=== PATIENT | male | born 1965 | race Caucasian/White ===

== ENCOUNTER 2022-04-07 02:49 | Emergency (ER) | payer OTHER ==
[~2022-04-07] VITALS: Ht 177.8 cm; Wt 90.7 kg
[~2022-04-07 02:49] MED LIST: AMOCLA875 PO; FOLBIC RF TABL1 EACH PO; METR250 PO; METRIBP PO; Omeprazole20 M1 PO
[2022-04-07 03:46] LABS: BASOPHILS ABSOLUTE AUTO 0.03 K/mm3 (0.00-0.23); BASOPHILS PERCENT AUTO 0 % (0-2); EOSINOPHILS ABSOLUTE AUTO 0.02 K/mm3 (0.00-0.68); EOSINOPHILS PERCENT AUTO 0 % (0-6); Hematocrit 40.7 % (37.0-53.0); Hemoglobin 13.5 g/dL (13.5-17.5); IMMATURE GRAN ABSOLUTE AUTO 0.04 K/mm3 (0.00-0.10); IMMATURE GRAN PERCENT AUTO 0 % (0-1); LYMPHOCYTES ABSOLUTE AUTO 0.86 K/mm3 (0.84-5.20); LYMPHOCYTES PERCENT AUTO 9 % (21-46); MONOCYTES ABSOLUTE AUTO 0.35 K/mm3 (0.16-1.47); MONOCYTES PERCENT AUTO 4 % (4-13); Mean Corpuscular HGB Conc 33.2 g/dL (31.5-36.5); Mean Corpuscular Volume 87 fL (80-100); Mean Platelet Volume 10.2 fL (9.1-12.4); NEUTROPHILS ABSOLUTE AUTO 8.68 K/mm3 (1.96-9.15); NEUTROPHILS PERCENT AUTO 87 % (41-73); Platelet Count 245 K/mm3 (150-400); RDW Coefficient Variation 14.4 % (11.7-14.2); RDW Standard Deviation 46.2 fL (35.1-46.3); Red Blood Cell Count 4.66 M/mm3 (4.30-5.90); White Blood Cell Count 9.98 K/mm3 (4.00-11.30)
[2022-04-07 04:10] LABS: Albumin, Blood 3.9 g/dL (3.4-5.0); Bilirubin, Total 0.2 mg/dL (0.1-1.0); Bun/Creatinine Ratio 23.4 (12.0-20.0); Creatinine, Blood 0.73 mg/dL (0.60-1.20); Globulin, Blood 3.9 g/dL (2.2-4.0); Potassium, Blood 3.5 mmol/L (3.5-5.5); Total Protein, Blood 7.8 g/dL (6.4-8.2)
[2022-04-07] MEDS ORDERED: CIPRO500 M1 PO (06:47)
[2022-04-07] MEDS ORDERED: METR500 PO (06:47)
[2022-04-07 06:52] LABS: Source, Urine Clean Catch
[2022-04-07 07:01] LABS: Bilirubin, Urine Neg (Neg); Blood, Urine Neg (Neg); Glucose Qualitative, Urine Neg (Neg); Ketones, Urine Neg (Neg); Leukocyte Esterase, Urine Neg (Neg); Nitrite, Urine Neg (Neg); Protein, Urine 1+ (Neg); Urobilinogen, Urine NORM (Normal)
[2022-04-07 07:32] LABS: Appearance, Urine Clear (Clear); Color, Urine Yellow (P-Yellow)
== END 2022-04-07 07:43 | disposition home or self-care (01) ==
LOC: ER 02:49
PROVIDERS: Student in an Organized Health Care Education/Training Program
DX: K57.32 Diverticulitis of large intestine without perforation or abscess without bleeding (principal); Z79.899 Other long term (current) drug therapy
CPT/HCPCS: 74177; 80053; 83690; 85025; 87086; A9270; G0480; J0744; J1170; J2405; J7030; Q9967

== ENCOUNTER → 2022-05-02 | Outpatient (CLI) | payer OTHER ==
[~2022-05-02] MED LIST changes: +CIPRO500 M1 PO; +METR500 PO
[2022-05-02 16:54] LABS: BASOPHILS ABSOLUTE AUTO 0.03 K/mm3 (0.00-0.23); BASOPHILS PERCENT AUTO 0 % (0-2); EOSINOPHILS ABSOLUTE AUTO 0.09 K/mm3 (0.00-0.68); EOSINOPHILS PERCENT AUTO 1 % (0-6); Hematocrit 41.3 % (37.0-53.0); Hemoglobin 13.8 g/dL (13.5-17.5); IMMATURE GRAN ABSOLUTE AUTO 0.03 K/mm3 (0.00-0.10); IMMATURE GRAN PERCENT AUTO 0 % (0-1); LYMPHOCYTES ABSOLUTE AUTO 0.84 K/mm3 (0.84-5.20); LYMPHOCYTES PERCENT AUTO 9 % (21-46); MONOCYTES ABSOLUTE AUTO 0.71 K/mm3 (0.16-1.47); MONOCYTES PERCENT AUTO 8 % (4-13); Mean Corpuscular HGB 29.2 pg (26.0-34.0); Mean Corpuscular HGB Conc 33.4 g/dL (31.5-36.5); Mean Corpuscular Volume 87 fL (80-100); Mean Platelet Volume 10.5 fL (9.1-12.4); NEUTROPHILS ABSOLUTE AUTO 7.34 K/mm3 (1.96-9.15); NEUTROPHILS PERCENT AUTO 81 % (41-73); Platelet Count 242 K/mm3 (150-400); RDW Coefficient Variation 14.7 % (11.7-14.2); RDW Standard Deviation 47.3 fL (35.1-46.3); Red Blood Cell Count 4.73 M/mm3 (4.30-5.90); White Blood Cell Count 9.04 K/mm3 (4.00-11.30)
[2022-05-02 17:02] LABS: Albumin, Blood 4.1 g/dL (3.4-5.0); Albumin/Globulin Ratio 1.1 (0.8-1.8); Bilirubin, Total 5.2 mg/dL (0.1-1.0); Bun/Creatinine Ratio 22.1 (12.0-20.0); Calcium, Blood 9.6 mg/dL (8.5-10.1); Creatinine, Blood 0.86 mg/dL (0.60-1.20); Globulin, Blood 3.9 g/dL (2.2-4.0); Potassium, Blood 3.9 mmol/L (3.5-5.5)
[2022-05-02 19:41] LABS: Prothrombin Time Results 10.5 Sec (9.7-11.5)
[2022-05-04 09:11] LABS: HBSAG SCREEN Negative (Negative); HCV AB <0.1 (0.0-0.9); HEP B CORE AB, TOT Negative (Negative)
== END | disposition home or self-care (01) ==
LOC: LAB 16:33 → LAB SHORT 16:33
PROVIDERS: Chiropractor
DX: R10.9 Unspecified abdominal pain (principal); R74.01 Elevation of levels of liver transaminase levels
CPT/HCPCS: 80053; 83690; 85025; 85610; 85730

== ENCOUNTER 2022-06-12 06:06 | Day surgery (SDC) | payer OTHER ==
[~2022-06-12] VITALS: Ht 172.7 cm; Wt 91.3 kg
[2022-06-12] MEDS ORDERED: MELADOX3 M1 PO (06:26)
[2022-06-12] MEDS ORDERED: Prinivil10 MG PO (06:49)
--- NOTE | 2022-06-12 07:03 | NUR ---
Ambulatory in Day Surgery History, Chart, Medications and Allergies reviewed before start of procedure. Lungs clear T/O to Auscultation. Pre-Op teaching done. Pt verbalizes understanding. Patient States Post-Procedure ride home has been arranged with .
--- NOTE | 2022-06-12 10:20 | NUR ---
Dressing to procedure site clean, dry, intact with no visible drainage, swelling, erythema or bruising noted. Ice pack applied to surgical site for comfort.
--- NOTE | 2022-06-12 11:18 | NUR ---
Discharge instructions AND [facility] reviewed with patient and . Patient and verbalize understanding. Copy given to patient to take home.
--- NOTE | 2022-06-12 11:27 | NUR ---
Discharged via wheelchair to private car for ride home.
== END 2022-06-12 11:28 | disposition home or self-care (01) ==
LOC: ORSCMMR 06:06 → ORD 07:30 → ORSCMMR 07:30
PROVIDERS: Surgery
PROC: 0FB04ZX Excision of Liver, Percutaneous Endoscopic Approach, Diagnostic (ICD-10-PCS; principal; 2022-06-12 07:30)
PROC: 0FT44ZZ Resection of Gallbladder, Percutaneous Endoscopic Approach (ICD-10-PCS; principal; 2022-06-12 07:30)
DX: K80.10 Calculus of gallbladder with chronic cholecystitis without obstruction (principal); K66.0 Peritoneal adhesions (postprocedural) (postinfection); Z79.899 Other long term (current) drug therapy
CPT/HCPCS: 88304; A9270; J0694; J1100; J2250; J2370; J2405; J2704; J2795; J3010; J7120

== ENCOUNTER 2022-09-23 12:53 | Day surgery (SDC) | payer OTHER ==
[~2022-09-23] VITALS: Ht 172.7 cm; Wt 93.1 kg
[~2022-09-23 12:53] MED LIST changes: +MELADOX3 M1 PO; +Prinivil10 MG PO
== END 2022-09-23 14:45 | disposition home or self-care (01) ==
LOC: ORSCSDS 12:53
PROVIDERS: Internal Medicine Gastroenterology
PROC: 0DBK8ZX Excision of Ascending Colon, Via Natural or Artificial Opening Endoscopic, Diagnostic (ICD-10-PCS; principal; 2022-09-23 14:15)
PROC: 0DBH8ZX Excision of Cecum, Via Natural or Artificial Opening Endoscopic, Diagnostic (ICD-10-PCS; principal; 2022-09-23 14:15)
DX: Z87.19 Personal history of other diseases of the digestive system (principal); D12.2 Benign neoplasm of ascending colon; D12.0 Benign neoplasm of cecum; K64.8 Other hemorrhoids; Z79.899 Other long term (current) drug therapy
CPT/HCPCS: 88305; J2704; J7120

== ENCOUNTER → 2023-02-24 | Outpatient (CLI) | payer OTHER | END | disposition home or self-care (01) | LOC: LAB SHORT 08:09 → PLD 08:09 → LAB 08:09 | DX: H61.002 Unspecified perichondritis of left external ear (principal) | CPT/HCPCS: 88305; 88312 ==